=== PATIENT | female | born 1990 | race Caucasian/White ===

== ENCOUNTER 2017-06-05 22:08 | Emergency (ER) | payer SELFPAY ==
[~2017-06-05] VITALS: Ht 162.6 cm; Wt 84.0 kg
[2017-06-05 22:40] VITALS: Ht 162.6 cm; Wt 84.0 kg
[2017-06-06] MEDS ORDERED: KETOROLAC 60 MG INJ IM STA (00:55)
--- NOTE | 2017-06-06 00:59 | ERD ---
ER Documentation Chief Complaint Date/Time DATE: 06/06/17 TIME: 00:58 Chief Complaint LEFT KNEE PAIN X 1 MONTH HPI This is a 27-year-old female with left knee pain on and off for the past 3 weeks. No fevers no chills. No nausea no vomiting. No other current complaints. Pain is mild to moderate in intensity. It hurts more when she walks on it. No direct trauma. ROS All systems reviewed and are negative except as per history of present illness. Allergies Allergies: Coded Allergies: No Known Drug Allergies (Verified Allergy, 10/02/13) PMhx/Soc Medical and Surgical Hx: pt denies Medical Hx History of Surgery: Yes (cholecystectomy) Anesthesia Reaction: No Hx Miscellaneous Medical Probl: No Hx Alcohol Use: No Hx Substance Use: No Hx Tobacco Use: No Smoking Status: Never smoker Physical Exam Vitals Vital Signs Date Time Temp Pulse Resp B/P Pulse Ox O2 Delivery O2 Flow Rate FiO2 06/05/17 22:40 97.4 71 20 121/78 98 Physical Exam Const: [] Head: Atraumatic Eyes: Normal Conjunctiva ENT: Normal External Ears, Nose and Mouth. Neck: Full range of motion..~ No meningismus. Resp: Clear to auscultation bilaterally Cardio: Regular rate and rhythm, no murmurs Abd: Soft, non tender, non distended. Normal bowel sounds Skin: No petechiae or rashes Back: No midline or flank tenderness Ext: Mild crepitus noted on full range of motion of left knee. No obvious deformity Neur: Awake and alert Psych: Normal Mood and Affect Results 24 hrs Current Medications Medications (Trade) Dose Ordered Sig/Radha Route PRN Reason Start Time Stop Time Status Last Admin Dose Admin Ketorolac Tromethamine (Toradol) 60 mg ONCE STAT IM 06/06/17 00:55 06/06/17 00:57 DC Procedures/MDM X-ray Knee 3V Interpreted by me: Bones: [No fracture] Joints: [No dislocation] Foreign body: [None] Medical decision-m[age] year female has what looks to be tendinitis versus bursitis. Is been clinically stable. Patient be discharged home with Janes wrap and Naprosyn. Follow-up with PCP for possible orthopedic referral as an outpatient Departure Diagnosis: Primary Impression: Knee pain Laterality: left Chronicity: acute Qualified Code: M25.562 - Acute pain of left knee Condition: Stable GABRIELLA KIRBY Jun 06, 2017 00:59
[2017-06-06] MEDS ORDERED: NAPR-260 PO (01:02)
--- NOTE | 2017-06-06 01:52 | RADRPT ---
PROCEDURE: X-ray left knee. CLINICAL INDICATION: Left knee pain, without trauma. TECHNIQUE: 3 views of the left knee. COMPARISON: None. FINDINGS: Mild to moderate joint effusion. No acute fracture dislocation otherwise identified. Soft tissues otherwise unremarkable. IMPRESSION: Mild to moderate joint effusion, without acute fracture. RPTAT: [facility] Physician Larry Date Time Electronically viewed and signed by Ruth Bonilla Physician on 06/06/2017 01:52 RS/
== END 2017-06-06 01:10 | disposition home or self-care (01) ==
LOC: E/R 22:08
DX: M25.562 Pain in left knee (principal)
CPT/HCPCS: 73562; 96372; 99284; J1885